=== PATIENT | male | born 1970 ===

== ENCOUNTER 2023-05-14 07:19 | Day surgery (SDC) | payer OTHER ==
[~2023-05-14] VITALS: Ht 172.7 cm; Wt 80.1 kg
[2023-05-14 08:12] VITALS: BP 127/92; PULSE 52; TEMP 97.8
[2023-05-14] MEDS ORDERED: BRINTELLIX20 (08:33)
[2023-05-14] MEDS ORDERED: PRILOSEC 20MG20 MG PO ×2 (08:33→08:35)
[2023-05-14] MEDS ORDERED: TENORMIN 2525 MG/TAB PO (08:34)
[2023-05-14] MEDS ORDERED: DESYREL 50MG50 MG (08:34)
[2023-05-14 10:17] VITALS: BP 108/74; PULSE 80; TEMP 98.4
[2023-05-14 10:30] VITALS: BP 119/74; PULSE 74
[2023-05-14 10:45] VITALS: BP 124/72; PULSE 72
[2023-05-14 11:00] VITALS: BP 121/71; PULSE 71
--- NOTE | 2023-05-14 14:38 | NUR ---
[id number]: PT TO RECOVERY BAY 2 FROM OR S/P RIGHT OPEN INGUINAL HERNIA L&O, PLACED ON MONITOR, VSS ON RA RECEIVED REPORT AND ASSUMED CARE OF PT FROM [facility] (ADAPTIC, 4X4, MEDIPORE TAPE) CDI DENIES COMPLAINT SPOUSE AT BEDSIDE PROVIDED WATER, TOLERATING WELL DR ANDERSEN IN TO SPEAK WITH PT/FAMILY POST-PROCEDURE PT HAS REMAINED A&O, NAD, VSS ON RA, TOLERATING PO, IS WITHOUT SIGNIFICANT COMPLAINT, WITH STEADY GAIT THRU OUT STAY IV D/C'D. D/C INSTRUCTIONS, ANY FOLLOW UP REVIEWED AND HANDED TO PT. ALL QUESTIONS AND CONCERNS ADDRESSED TO PT SATISFACTION. TAKEN TO EXIT VIA W/C WITH ALL BELONGINGS AND PAPERWORK IN HAND, ASSISTED INTO PASSENGER SEAT OF POV. SPOUSE TO DRIVE HOME.
== END 2023-05-14 11:20 | disposition home or self-care (01) ==
LOC: SDCO 07:19
DX: K40.90 Unilateral inguinal hernia, without obstruction or gangrene, not specified as recurrent (principal); D17.6 Benign lipomatous neoplasm of spermatic cord
CPT/HCPCS: C1781; J0690; J1100; J1885; J2405; J2704; J3010; J7120